=== PATIENT | male | born 1960 | race Two or more races ===

== ENCOUNTER 2022-05-03 15:44 | Inpatient (IN) | payer MEDICAID, OTHER ==
[~2022-05-03] VITALS: Ht 165.1 cm; Wt 81.0 kg
[2022-05-03 16:10] LABS: Basophils # (auto) 0.1 10 ^3/uL (0-0.2); Basophils % (auto) 1.1 % (0.0-2.0); Eosinophils # (auto) 0.1 10 ^3/uL (0-0.8); Eosinophils % (auto) 1.8 % (0.0-7.0); Hematocrit 19.8 % (41.0-53.0); Lymphocytes # (auto) 1.1 10 ^3/uL (0.4-5.4); Lymphocytes % (auto) 13.9 % (10.0-50.0); Mean Corpuscular Hemoglobin 20.1 pg (28.0-32.0); Mean Corpuscular Hgb Conc. 28.9 g/dL (32.0-36.0); Mean Corpuscular Volume 69.6 fL (80.0-100.0); Monocytes # (auto) 0.8 10 ^3/uL (0-1.3); Monocytes % (auto) 10.3 % (0.0-12.0); Neutrophils # (auto) 5.6 10 ^3/uL (1.6-8.6); Neutrophils % (auto) 72.9 % (37.0-80.0); Nucleated Red Blood Cells % 0.5 %; Red Blood Cells 2.85 10^6/uL (4.5-5.90); White Blood Cell 7.7 10^3/uL (4.4-10.8)
[2022-05-03 16:17] LABS: Hemoglobin 5.7 g/dL (13.5-17.5); Red Cell Distribution Width 25.1 % (11.8-14.3)
[2022-05-03 16:28] LABS: Albumin 3.3 g/dL (3.4-5.0); BUN/Creatinine Ratio 17.7; Magnesium 1.8 mg/dL (1.6-2.6); Potassium 3.9 mmol/L (3.5-5.1)
[2022-05-03 16:31] LABS: Bilirubin, Total 0.6 mg/dL (0.2-1.0); Total Protein 6.6 g/dL (6.4-8.2)
[2022-05-03 21:15] VITALS: BP 147/83
[2022-05-03 21:30] VITALS: BP 141/85
[2022-05-03] MEDS ORDERED: DEXTROSE (50%) 50ML SYRG IV PRN (21:45)
[2022-05-03] MEDS ORDERED: ONDANSETRON HCL 4 MG/2 ML VIAL IV PRN (21:45)
[2022-05-03] MEDS ORDERED: ACETAMINOPHEN 325 MG TAB PO PRN (21:45)
[2022-05-03] MEDS ORDERED: HYDROcodone-ACET 5/325MG TAB PO PRN (21:45)
[2022-05-03 22:15] VITALS: BP 130/85
[2022-05-03] MEDS: SODIUM CHLOR 0.9% PF (SALINE LOCK) 10ML VIAL/SYR IV SCH (22:44)
[2022-05-03] MEDS: ACCU-CHEK COMFORT CURVE STRIP VI SCH (22:44)
[2022-05-03] MEDS: InsuLIN REG 1unit/0.01ml Soln (100units/ml) SC SCH (22:44)
[2022-05-03] MEDS: FAMOTIDINE (10MG/ML) 2ML VL IV SCH (22:50)
[2022-05-03 23:15] VITALS: BP_SYST 133; BP_SYST 147; BP_DIAS 82; BP_DIAS 83
[2022-05-03] MEDS ORDERED: hydrALAZINE HCL 20 MG/ML VL IV PRN (23:30)
[2022-05-03] MEDS ORDERED: NITROGLYCERIN 0.4 MG SL TAB SL PRN (23:30)
[2022-05-03] MEDS ORDERED: MORPHINE SULFATE INJ 2 MG/ml SYRG IV PRN (23:30)
[2022-05-03 23:45] VITALS: BP 141/90
[2022-05-04] VITALS (7 sets, daily range): BP systolic 119–139; BP diastolic 80–94
[2022-05-04] MEDS ORDERED: LORazepam 2MG/ML-1ML VIAL IV PRN (01:00)
[2022-05-04 01:55] LABS: Urine Bacteria NONE SEEN /hpf (None Seen); Urine Blood Negative /uL (Negative); Urine Hyaline Cast FEW /lpf (0 - 2); Urine Specific Gravity 1.019 (1.001-1.035); Urine WBC 1 /hpf (0 - 3)
[2022-05-04 03:47] LABS: Albumin 3.3 g/dL (3.4-5.0); Calcium 7.7 mg/dL (8.5-10.1); Potassium 4.1 mmol/L (3.5-5.1)
[2022-05-04 03:49] LABS: Bilirubin, Total 4.5 mg/dL (0.2-1.0); Total Protein 6.3 g/dL (6.4-8.2)
[2022-05-04] MEDS: SODIUM CHLOR 0.9% PF (SALINE LOCK) 10ML VIAL/SYR IV SCH (05:50)
[2022-05-04] MEDS: ACCU-CHEK COMFORT CURVE STRIP VI SCH ×3 (06:38→17:00)
[2022-05-04] MEDS: InsuLIN REG 1unit/0.01ml Soln (100units/ml) SC SCH ×4 (06:39→22:00)
[2022-05-04 09:51] LABS: Basophils # (auto) 0.1 10 ^3/uL (0-0.2); Eosinophils # (auto) 0 10 ^3/uL (0-0.8); Eosinophils % (auto) 0.5 % (0.0-7.0); Lymphocytes # (auto) 0.8 10 ^3/uL (0.4-5.4); Lymphocytes % (auto) 9.8 % (10.0-50.0); Mean Corpuscular Hemoglobin 22.3 pg (28.0-32.0); Neutrophils # (auto) 6.6 10 ^3/uL (1.6-8.6); Nucleated Red Blood Cells % 0.6 %
[2022-05-04 09:53] LABS: Basophils % (auto) 1.3 % (0.0-2.0); Hematocrit 25.5 % (41.0-53.0); Hemoglobin 7.7 g/dL (13.5-17.5); Mean Corpuscular Hgb Conc. 30.2 g/dL (32.0-36.0); Mean Corpuscular Volume 73.9 fL (80.0-100.0); Monocytes # (auto) 0.9 10 ^3/uL (0-1.3); Monocytes % (auto) 10.3 % (0.0-12.0); Neutrophils % (auto) 78.1 % (37.0-80.0); Red Blood Cells 3.45 10^6/uL (4.5-5.90); White Blood Cell 8.4 10^3/uL (4.4-10.8)
[2022-05-04] MEDS: FAMOTIDINE (10MG/ML) 2ML VL IV SCH (10:41)
[2022-05-04] MEDS: THIAMINE 100mg/ml INJ (200mg/2ml VIAL) IV SCH (10:41)
[2022-05-04] MEDS: FOLIC ACID 1 MG TAB PO SCH (10:41)
[2022-05-04] MEDS: MULTIPLE VITAMIN TAB PO SCH (10:41)
[2022-05-04 10:53] LABS: Red Cell Distribution Width 24.7 % (11.8-14.3)
[2022-05-04] MEDS ORDERED: IPRATROPIUM BROM 0.5 MG/2.5ML INH SOL NEB PRN (11:15)
[2022-05-04] MEDS: SODIUM CHLORIDE 0.9% 1,000 ML IV SCH (12:30)
[2022-05-04] MEDS: PANTOPRAZOLE 40 MG/10 ML VIAL INJ IV SCH ×2 (12:30→21:37)
[2022-05-04 14:20] LABS: Alcohol, Urine < 3.0 mg/dL (0-10); Amphetamine Screen, Urine NEGATIVE (NEGATIVE); Barbiturate Scree,Urine NEGATIVE (NEGATIVE); Benzodiazephine Screen, Urine NEGATIVE (NEGATIVE); Cannabinoid Screen, Urine NEGATIVE (NEGATIVE); Cocaine Screen, Urine NEGATIVE (NEGATIVE); Opiate Scree,Urine NEGATIVE (NEGATIVE); Phencyclidine Screen, Urine NEGATIVE (NEGATIVE)
[2022-05-04] MEDS: SUCRALFATE 1 GM TAB PO SCH ×2 (17:31→21:38)
[2022-05-04] MEDS: ENSURE CLEAR Mixed Berry 8oz Carton PO SCH ×2 (18:00→18:30)
[2022-05-04] MEDS ORDERED: ACET1CAP14 PO (21:23)
[2022-05-04] MEDS ORDERED: HYDR25TA87 PO (21:24)
[2022-05-04] MEDS ORDERED: HYDR-4902 PO (21:25)
[2022-05-04] MEDS ORDERED: PANT40TA2 PO (21:26)
[2022-05-05] MEDS: ACCU-CHEK COMFORT CURVE STRIP VI SCH ×5 (01:19→22:00)
[2022-05-05] MEDS: InsuLIN REG 1unit/0.01ml Soln (100units/ml) SC SCH ×4 (05:59→22:00)
[2022-05-05] MEDS: SUCRALFATE 1 GM TAB PO SCH ×3 (07:00→17:00)
[2022-05-05] MEDS: SODIUM CHLORIDE 0.9% 1,000 ML IV SCH (07:15)
[2022-05-05 07:25] LABS: Basophils # (auto) 0.1 10 ^3/uL (0-0.2); Basophils % (auto) 1.6 % (0.0-2.0); Eosinophils # (auto) 0.2 10 ^3/uL (0-0.8); Red Blood Cells 3.37 10^6/uL (4.5-5.90); White Blood Cell 6.9 10^3/uL (4.4-10.8)
[2022-05-05 07:31] LABS: Hematocrit 24.6 % (41.0-53.0); Hemoglobin 7.3 g/dL (13.5-17.5); Lymphocytes # (auto) 0.7 10 ^3/uL (0.4-5.4); Lymphocytes % (auto) 10.7 % (10.0-50.0); Mean Corpuscular Hemoglobin 21.7 pg (28.0-32.0); Mean Corpuscular Hgb Conc. 29.7 g/dL (32.0-36.0); Mean Corpuscular Volume 72.9 fL (80.0-100.0); Monocytes # (auto) 0.9 10 ^3/uL (0-1.3); Monocytes % (auto) 12.5 % (0.0-12.0); Neutrophils % (auto) 72.2 % (37.0-80.0); Nucleated Red Blood Cells % 0.6 %
[2022-05-05 07:42] LABS: Calcium 7.9 mg/dL (8.5-10.1); Potassium 3.7 mmol/L (3.5-5.1)
[2022-05-05 07:48] LABS: Albumin 3.1 g/dL (3.4-5.0); BUN/Creatinine Ratio 15.6; Bilirubin, Total 1.8 mg/dL (0.2-1.0); Total Protein 6.1 g/dL (6.4-8.2)
[2022-05-05 08:00] VITALS: BP 113/76
[2022-05-05] MEDS: ENSURE CLEAR Mixed Berry 8oz Carton PO SCH ×3 (08:00→17:44)
[2022-05-05 08:09] LABS: Red Cell Distribution Width 24.7 % (11.8-14.3)
[2022-05-05 09:00] VITALS: BP 113/76
[2022-05-05] MEDS: MULTIPLE VITAMIN TAB PO SCH (10:02)
[2022-05-05] MEDS: THIAMINE 100mg/ml INJ (200mg/2ml VIAL) IV SCH (10:02)
[2022-05-05] MEDS: FOLIC ACID 1 MG TAB PO SCH (10:02)
[2022-05-05] MEDS: PANTOPRAZOLE 40 MG/10 ML VIAL INJ IV SCH (10:02)
[2022-05-05 10:22] LABS: INR 1.19 (0.9-1.15)
[2022-05-05 12:35] VITALS: BP 140/96
[2022-05-05] MEDS ORDERED: fentaNYL CITRATE 100 MCG/2 ML VL ONE (15:53)
[2022-05-05] MEDS ORDERED: SODIUM CHLORIDE LOCK 10 ML ONE (15:53)
[2022-05-05] MEDS ORDERED: MIDAZOLAM HCL 5 MG/ML-1ML VIAL ONE (15:53)
[2022-05-05] MEDS ORDERED: diphenhdrAMINE HCL 50 MG/1 ML VL ONE (15:53)
[2022-05-05] MEDS ORDERED: LIDOCAINE VISCOUS 2% 15ML UD ONE (15:53)
[2022-05-05 17:28] VITALS: BP 144/101
[2022-05-05 22:00] VITALS: BP 149/102
[2022-05-06] MEDS: PANTOPRAZOLE 40 MG/10 ML VIAL INJ IV SCH ×2 (00:28→09:29)
[2022-05-06] MEDS: SUCRALFATE 1 GM TAB PO SCH ×4 (00:29→17:00)
[2022-05-06 05:00] VITALS: BP 137/80
[2022-05-06 05:48] LABS: Basophils # (auto) 0.1 10 ^3/uL (0-0.2); Eosinophils # (auto) 0.1 10 ^3/uL (0-0.8); Hematocrit 25.5 % (41.0-53.0); Mean Corpuscular Volume 74.3 fL (80.0-100.0); Monocytes # (auto) 0.8 10 ^3/uL (0-1.3); Monocytes % (auto) 10.3 % (0.0-12.0); Neutrophils # (auto) 5.7 10 ^3/uL (1.6-8.6)
[2022-05-06 05:51] LABS: Basophils % (auto) 1.1 % (0.0-2.0); Hemoglobin 7.7 g/dL (13.5-17.5); Lymphocytes # (auto) 0.8 10 ^3/uL (0.4-5.4); Lymphocytes % (auto) 10.5 % (10.0-50.0); Mean Corpuscular Hemoglobin 22.5 pg (28.0-32.0); Mean Corpuscular Hgb Conc. 30.2 g/dL (32.0-36.0); Neutrophils % (auto) 77.1 % (37.0-80.0); Nucleated Red Blood Cells % 0.3 %; Red Blood Cells 3.43 10^6/uL (4.5-5.90); White Blood Cell 7.4 10^3/uL (4.4-10.8)
[2022-05-06 06:02] LABS: Red Cell Distribution Width 24.7 % (11.8-14.3)
[2022-05-06 06:24] LABS: Potassium 4.3 mmol/L (3.5-5.1)
[2022-05-06] MEDS: ACCU-CHEK COMFORT CURVE STRIP VI SCH ×3 (06:36→17:49)
[2022-05-06] MEDS: InsuLIN REG 1unit/0.01ml Soln (100units/ml) SC SCH ×3 (06:36→17:52)
[2022-05-06 06:37] LABS: Albumin 3.2 g/dL (3.4-5.0); BUN/Creatinine Ratio 14.7; Calcium 8.2 mg/dL (8.5-10.1)
[2022-05-06 06:41] LABS: Bilirubin, Total 1.2 mg/dL (0.2-1.0); Total Protein 6.3 g/dL (6.4-8.2)
[2022-05-06 08:00] VITALS: BP 150/90
[2022-05-06] MEDS: ENSURE CLEAR Mixed Berry 8oz Carton PO SCH ×3 (08:00→17:52)
[2022-05-06 09:19] VITALS: BP 150/90
[2022-05-06] MEDS: MULTIPLE VITAMIN TAB PO SCH (09:29)
[2022-05-06] MEDS: THIAMINE 100mg/ml INJ (200mg/2ml VIAL) IV SCH (09:29)
[2022-05-06] MEDS: FOLIC ACID 1 MG TAB PO SCH (09:29)
[2022-05-06] MEDS ORDERED: PANT40TA2 PO (11:23)
[2022-05-06] MEDS ORDERED: SUCR1TAB PO (11:23)
[2022-05-06 14:52] VITALS: BP 131/82
[2022-05-06] MEDS ORDERED: LACT10SO3 PO (16:44)
[2022-05-06 17:00] VITALS: BP 149/79
[2022-05-08 09:38] LABS: Hepatitis B Surface Antibody Negative (Negative)
[2022-05-08 10:15] LABS: Hepatitis A Total Antibody Negative (Negative)
[2022-05-08 12:05] LABS: Hepatitis C Antibody Negative (Negative)
== END 2022-05-06 19:20 | disposition home or self-care (01) | DRG 241 ==
LOC: ER 15:44 → TELE 23:22 → TELE-WESTW 05-04 20:12
PROVIDERS: ADMIT Nurse Practitioner Family; ATTEND Nurse Practitioner
PROC: 30233N1 Transfusion of Nonautologous Red Blood Cells into Peripheral Vein, Percutaneous Approach (ICD-10-PCS; principal; 2022-05-03)
PROC: 0DB98ZX Excision of Duodenum, Via Natural or Artificial Opening Endoscopic, Diagnostic (ICD-10-PCS; 2022-05-05)
PROC: 0DB68ZX Excision of Stomach, Via Natural or Artificial Opening Endoscopic, Diagnostic (ICD-10-PCS; 2022-05-05)
DX: K29.01 Acute gastritis with bleeding (principal); E11.22 Type 2 diabetes mellitus with diabetic chronic kidney disease; D64.9 Anemia, unspecified; F10.20 Alcohol dependence, uncomplicated; I12.9 Hypertensive chronic kidney disease with stage 1 through stage 4 chronic kidney disease, or unspecified chronic kidney disease; K29.91 Gastroduodenitis, unspecified, with bleeding; J45.909 Unspecified asthma, uncomplicated; N18.31 Chronic kidney disease, stage 3a; J98.11 Atelectasis; Z86.16 Personal history of COVID-19; Z87.01 Personal history of pneumonia (recurrent)
CPT/HCPCS: 36415; 36430; 71045; 76705; 80053; 80307; 80320; 81001; 82140; 82962; 83036; 83690; 83735; 84484; 85025; 85610; 86704; 86706; 86708; 86803; 86850; 86900; 86901; 86920; 87340; 93005; C9113; G0378; J1815; J2250; J2405; J3490

== ENCOUNTER 2025-05-21 11:30 | Emergency (ER) | payer OTHER, MEDICAID ==
[~2025-05-21] VITALS: Ht 170.2 cm; Wt 82.9 kg
[~2025-05-21 11:30] MED LIST: HYDR-4902 PO; HYDR25TA87 PO; LACT10SO3 PO; PANT40TA2 PO; SUCR1TAB PO
--- NOTE | 2025-05-21 11:47 | ED.PDOC ---
History of Present Illness HPI Comments 64 y.o male with PMHx of DM and HTN, presents to the ED for a chief complaint of left foot pain described as a burning, pins and needle sensation that starts at the bottom of his foot and radiates to the dorsum of his foot. Patient reports decreased sensation to bilateral feet bu no recent foot injuries. Patient is unsure if he has a history of neuropathy but states he thinks he was told this awhile ago but never got medication for it. Patient is compliant with medications, has not take his medication dose today but also states has not recently been checking his blood glucose at home. Upon ED arrival, BG read 183. Patient has no other complaints at this time. Patient ambulatory with walker and is able to bear weight to left foot. Time Seen by MD: 11:39 Primary Care Provider: NONE Reviewed Notes: Nurses Notes, Medications, Allergies Allergies: Coded Allergies: NO KNOWN ALLERGIES (Unverified , 05/03/22) Home Meds Active Scripts Gabapentin (Gabapentin) 100 Mg Cap, 1 CAP PO TID for 30 Days, #90 CAP Prov:KADE AVALOS MD 05/21/25 Lactulose (Lactulose) 10 Gm/15 Ml [place], 10 GM PO DAILY for 30 Days, #450 ML Prov:LELAND DAVIS NP 05/06/22 Pantoprazole Sodium Sesquihydr (Protonix) 40 Mg Tab, 40 MG PO BID for 30 Days, #60 TAB Prov:LELAND DAVIS NP 05/06/22 Sucralfate (Sucralfate) 1 Gm Tab, 1 GM PO QIDACHS for 30 Days, #120 TAB Prov:LELAND DAVIS NP 05/06/22 Reported Medications Hydrocodone-Acetaminophen (Hydrocodone Bitartrate/AC 5-325 mg) 1 Tab Tab, 1 TAB PO BID, TAB 05/04/22 Hydralazine HCl (Hydralazine HCl) 25 Mg Tab, 25 MG PO, TAB 05/04/22 Information Source: Patient Mode of Arrival: walker Severity: Moderate Timing: Days Duration: Since onset Past Medical History PAST MEDICAL HISTORY: Asthma, DM, HTN Surgical History: Denies all surgeries Family History Family History: Reviewed,noncontributory to illness Social History Smoker: Non-Smoker Alcohol: Heavy Drugs: Denies Drug Use Lives In: Home Constitutional: denies: chills, diaphoresis, fatigue, fever, malaise, sweats, weakness, others EENTM: denies: blurred vision, double vision, ear bleeding, ear discharge, ear drainage, ear pain, ear ringing, eye pain, eye redness, hearing loss, mouth pain, mouth swelling, nasal discharge, nose bleeding, nose congestion, nose pain, photophobia, tearing, throat pain, throat swelling, voice changes, others Respiratory: denies: cough, hemoptysis, orthopnea, SOB at rest, shortness of breath, SOB with excertion, stridor, wheezing, others Cardiovascular: denies: chest pain, dizzy spells, diaphoresis, Dyspnea on exertion, edema, irregular heart beat, left arm pain, lightheadedness, palpitations, PND, syncope, others Gastrointestinal: denies: abdomen distended, abdominal pain, blood streaked bowels, constipated, diarrhea, dysphagia, difficulty swallowing, hematemesis, melena, nausea, poor appetite, poor fluid intake, rectal bleeding, rectal pain, vomiting, others Genitourinary: denies: burning, dysuria, flank pain, frequency, hematuria, incontinence, penile discharge, penile sore, pain, testicle pain, testicle swelling, urgency, others Neurological: reports: others (left foot pain ); denies: dizziness, fainting, headache, left sided numbness, left sided weakness, numbness, paresthesia, pre- existing deficit, right sided numbness, right sided weakness, seizure, speech problems, tingling, tremors, weakness Musculoskeletal: denies: back pain, gout, joint pain, joint swelling, muscle pain, muscle stiffness, neck pain, others Integumetry: denies: bruises, change in color, change in hair/nails, dryness, laceration, lesions, lumps, rash, wounds, others Allergic/Immunocompromised: denies: Difficulty Healing, Frequent Infections, Hives, Itching, others Hematologic/Lymphatic: denies: anemia, blood clots, easy bleeding, easy bruising, swollen glands, others Endocrine: denies: excessive hunger, excessive sweating, excessive thirst, excessive urination, flushing, intolerance to cold, intolerance to heat, unexplained weight gain, unexplained weight loss, others Psychiatric: denies: anxiety, bipolar disorder, depression, hopeless, panic disorder, schizophrenia, sleepless, suicidal, others All Other Systems: Reviewed and Negative Physical Exam General Appearance: No Apparent Distress, Normal HEENT: Normal ENT Inspection, Pharynx Normal, TMs Normal Neck: Full Range of Motion, Non-Tender, Normal, Normal Inspection Respiratory: Chest Non-Tender, Lungs Clear, No Accessory Muscle Use, No Respiratory Distress, Normal Breath Sounds Cardiovascular: No Edema, No JVD, No Murmur, No Gallop, Normal Peripheral Pulses, Regular Rate/Rhythm Breast Exam: Deferred Gastrointestinal: No Organomegaly, Non Tender, No Pulsatile Mass, Normal Bowel Sounds, Soft Genitalia: Deferred Pelvic: Deferred Rectal: Deferred Extremities: No calf tenderness, Normal capillary refill, Normal inspection, Normal range of motion, Non-tender, No pedal edema, Other (Decreased sensation to touch to bilateral feet, 2+ DP pulses bilaterally. Sensation although diminished is intact to light touch bilaterally. Able to ambulate with the assistance of the walker. Full range of motion of all toes and ankles and knees. No open wounds. No rashes.) Musculoskeletal : Apperance: Normal Neurologic: Alert, business analytics intern II-XII nml as Tested, No Motor Deficits, Normal Affect, Normal Mood, No Sensory Deficits Cerebellar Function: NOT DONE Reflexes: NOT DONE Skin: Dry, Normal Color, Warm Lymphatic: No Adenopathy Was a procedure done? Was a procedure done?: No Differential Dx Considerations may include: Nerve Compression or Injury, peripheral neuropathy, Nutritional Deficiencies: Deficiencies in vitamins B1, B6, B12, and vitamin E, toxic neuropathy. X-Ray, Labs, Meds, VS Vital Signs Date Time Temp Pulse Resp B/P (MAP) Pulse Ox O2 Delivery O2 Flow Rate FiO2 05/21/25 11:38 97.9 95 16 132/88 (103) 96 97.9 X-Ray, Labs, Meds, VS Comment 64-year-old male here today with the complaints of suspected diabetic neuropathy. Patient does have a history of alcoholism however he states that he has not drank in many months and he has a normal appetite/diet, doubt vitamin deficiency. Patient's symptoms have been chronic for many months but recently has been worsening. No trauma. No signs of infection. No rashes. Neurovascularly intact although sensation is diminished to bilateral feet. I instructed the patient to follow up with his primary care provider within 2-3 days for re-evaluation and in the meantime I prescribed him gabapentin. Return precautions discussed. Patient expressed understanding. Patient discharged home in stable condition ambulating with a steady gait with the assistance of his walker and in no distress. Time of 1ST Reevaluation: 11:47 Reevaluation 1ST: Unchanged Patient Education/Counseling: Diagnosis, Treatment, Prognosis, Need For Follow Up Family Education/Counseling: No Family Present SEPSIS Sepsis Screen Vital Signs Date Time Temp Pulse Resp B/P (MAP) Pulse Ox O2 Delivery O2 Flow Rate FiO2 05/21/25 11:38 97.9 95 16 132/88 (103) 96 97.9 Departure 1 Departure Time of Disposition: 12:11 Impression: Primary Impression: Diabetic neuropathy Additional Impressions: Anemia Alcoholism Disposition: HOME / SELF CARE / HOMELESS Condition: Stable e-Prescriptions Gabapentin (Gabapentin) 100 Mg Cap 1 CAP PO TID for 30 Days, #90 CAP Prov: KADE AVALOS MD 05/21/25 Discharged With: Self Critical Care Note Critical Care Time?: No Stability Stability form required: No I personally scribed for KADE AVALOS MD ([email or web address]) on 05/21/25 at 11:47. Electronically submitted by Tika Amaro ([facility]). KADE AVALOS MD May 21, 2025 11:47
[2025-05-21] MEDS ORDERED: GABA-1308 PO (11:54)
[2025-05-21 12:10] VITALS: BP 121/81; PULSE 91; RESP 20; TEMP 98.2; O2SAT 95
== END 2025-05-21 12:20 | disposition home or self-care (01) ==
LOC: ER 11:30
DX: E11.40 Type 2 diabetes mellitus with diabetic neuropathy, unspecified (principal); D64.9 Anemia, unspecified; F10.20 Alcohol dependence, uncomplicated; J45.909 Unspecified asthma, uncomplicated; I10 Essential (primary) hypertension; Z79.899 Other long term (current) drug therapy; Y90.9 Presence of alcohol in blood, level not specified
CPT/HCPCS: 82947